=== PATIENT | female | born 1975 | race Two or more races ===

== ENCOUNTER 2018-04-14 14:54 | Emergency (ER) | payer OTHER ==
[~2018-04-14] VITALS: Ht 152.4 cm; Wt 43.1 kg
[~2018-04-14 14:54] MED LIST: TESSALON200 MG PO; ZYRTEC10 MG PO
[2018-04-14] MEDS ORDERED: EFFEXOR XR75 MG (15:37)
== END 2018-04-14 16:38 | disposition home or self-care (01) ==
LOC: ER 14:54
DX: S90.111A Contusion of right great toe without damage to nail, initial encounter (principal); W22.8XXA Striking against or struck by other objects, initial encounter; Y93.89 Activity, other specified; Y92.89 Other specified places as the place of occurrence of the external cause; Y99.8 Other external cause status

== ENCOUNTER 2019-10-27 10:44 | Outpatient (CLI) | payer OTHER ==
[~2019-10-27 10:44] MED LIST changes: +EFFEXOR XR75 MG
== END 2019-10-27 11:02 | disposition home or self-care (01) ==
LOC: MAMO-SONO 10:44
PROVIDERS: ATTEND Obstetrics & Gynecology
DX: Z12.31 Encounter for screening mammogram for malignant neoplasm of breast (principal); E78.00 Pure hypercholesterolemia, unspecified; E55.0 Rickets, active; N60.09 Solitary cyst of unspecified breast

== ENCOUNTER 2021-09-29 13:51 | Outpatient (CLI) | payer OTHER | END 2021-09-29 13:55 | disposition home or self-care (01) | LOC: MAMO-SONO 13:51 | PROVIDERS: ATTEND Internal Medicine | DX: N60.11 Diffuse cystic mastopathy of right breast (principal); N60.12 Diffuse cystic mastopathy of left breast; I10 Essential (primary) hypertension; E78.9 Disorder of lipoprotein metabolism, unspecified; E78.2 Mixed hyperlipidemia ==

== ENCOUNTER 2022-10-12 09:03 | Outpatient (CLI) | payer OTHER | END 2022-10-12 09:09 | disposition home or self-care (01) | LOC: MAMO-SONO 09:03 | PROVIDERS: ATTEND Obstetrics & Gynecology | DX: Z12.31 Encounter for screening mammogram for malignant neoplasm of breast (principal); N60.11 Diffuse cystic mastopathy of right breast; N60.12 Diffuse cystic mastopathy of left breast ==

== ENCOUNTER 2024-01-03 08:57 | Outpatient (CLI) | payer OTHER | END 2024-01-03 09:09 | disposition home or self-care (01) | LOC: MAMO-SONO 08:57 | PROVIDERS: ATTEND Obstetrics & Gynecology | DX: N60.11 Diffuse cystic mastopathy of right breast (principal); N60.12 Diffuse cystic mastopathy of left breast; Z12.31 Encounter for screening mammogram for malignant neoplasm of breast ==